=== PATIENT | female | born 1965 | race Caucasian/White ===

== ENCOUNTER 2023-06-22 19:13 | Emergency (ER) | payer BC, SELFPAY ==
[2023-06-22 19:17] VITALS: BP 176/73
--- NOTE | 2023-06-22 21:17 | ED.GENMED ---
History of Present Illness
General
Chief Complaint: Musculo-Skeletal Complaint
Time Seen by Provider: 06/22/23 20:33
Travel History
Have you had any contact with someone who has COVID-19?: No
Do you have any symptoms of coronavirus? Fever > 100 degrees, chills, cough, shortness of breath, sore throat, loss of taste or smell, muscle aches, or headache?: No
History of Present Illness
History of Present Illness:
57-year-old female presents the emergency department for evaluation of bilateral knee pain after a fall 2 days ago. Fell onto flexed knees. She has been able to walk but is noticed increased swelling and bruising particular to the right knee.
Denies any hip pain or back pain. Does not take anticoagulants
Past History
Past History
ED Past Medical History: HTN, NIDDM and Other (obesity)
ED Past Surgical History: Orthopedic
Patient has exhibited threatening behavior?: No
Social History
Tobacco: Non-smoker
Alcohol: Occasional
Drug: None
Personal:
Living: with family
Employment: Employed
Family History
Family History: Diabetes
Review of Systems
Review of Systems
Allergies reviewed?: Yes
All Other Systems: ROS reviewed and negative except as documented in HPI and ROS
Phy Exam
Physical Exam
Physical Exam:
GEN: Well appearing, NAD, WDWN
HEENT: Oral mucosa moist, no scleral icterus
Cardiac: Regular rate
Lung: No respiratory distress, no tachypnea
MSK: Diffuse ecchymosis to the right knee. Normal range of motion. Valgus deformity likely chronic. No ecchymosis to the left knee, valgus deformity likely chronic. Normal range of motion.
Skin: Good color, no pallor or jaundice, no rashes
Neuro: AO x3, moves all extremities freely
Psych: Calm, cooperative
Course
Orders/Labs/Results
Orders:
Orders
06/22/23 20:36
CR Knee - Left 4 Or More View* Urgent
Comment:
Reason For Exam: fall injury
CR Knee- Right 4 Or More View* Urgent
Comment:
Reason For Exam: fall injury
Vital Signs
Initial and Last Documented VS:
Initial Vital Signs
Temp Pulse Resp BP Pulse Ox
97.5 F 64 18 176/73 100
06/22/23 19:17 06/22/23 19:17 06/22/23 19:17 06/22/23 19:17 06/22/23 19:17
Last Documented Vital Signs
Temp Pulse Resp BP Pulse Ox
97.5 F 64 18 176/73 100
06/22/23 19:17 06/22/23 19:17 06/22/23 19:17 06/22/23 19:17 06/22/23 19:17
MDM/Problems Addressed
MDM/Problems Addressed:
X-rays of bilateral knees independently interpreted by me are negative for acute osseous abnormalities. Discussed supportive care
*Critical Care Note
Total Time (30-74mins, 75-104mins- exclusive of procedures): Not Applicable
ED Attending Note
-
Portions of this chart may have been created with voice recognition software.� Occasional wrong word or��sound alike� substitutions may have occurred due to the inherent limitations of voice recognition software.
Discharge Plan
Departure
Patient Disposition: Home (Routine Discharge)
Date of Disposition: 06/22/23
Time of Disposition: 22:21
Patient with high blood pressure during this ER visit?: No
Discharge Problem:
Contusion of knee, left, Contusion of knee, right
Instructions: Contusion (DC)
Prescriptions:
No Action
metformin 500 MG tablet
1,000 mg PO BID
Felodipine
10 mg PO DAILY
Lisinopril
10 mg PO DAILY
glimepiride 1 MG tablet
5 mg PO DAILY
Trulicity
1 unit INJ WEEKLY
azithromycin 250 MG tablet
250 mg PO DAILY Qty: 4 0RF
clindamycin HCl 300 mg capsule
300 mg PO TID 5 Days Qty: 14 0RF
ondansetron 4 mg tablet,disintegrating
4 mg PO TIDPRN PRN (Reason: nausea/vomiting) Qty: 10 0RF
Referrals:
Eivn South DO [Family Provider] -
Interventions
Interventions:
*Risk Screen - Suicide Last Done: 06/22/23 19:20
*General Assessment Last Done: 06/22/23 19:20
*Neglect/Abuse Screening Last Done: 06/22/23 19:20
ED- Fall Risk Assessment Last Done: 06/22/23 19:37
*ED COVID-19 Vaccine History Last Done: 06/22/23 19:45
*Nursing Disposition Last Done: 06/22/23 22:24
ED-Musculoskeletal Assessment Last Done: 06/22/23 19:42
ED- Neurological Assessment Last Done: 06/22/23 19:42
ED-Skin Assessment Last Done: 06/22/23 19:42
Discharge Date and Time
Discharge Date/Time: 06/22/23 22:25
== END 2023-06-22 22:25 | disposition home or self-care (01) ==
LOC: EMR 19:13
PROVIDERS: EMERGENCY PHYSICIAN Emergency Medicine; FAMILY PHYSICIAN Family Medicine
DX: S80.02XA Contusion of left knee, initial encounter (principal); S80.01XA Contusion of right knee, initial encounter; W19.XXXA Unspecified fall, initial encounter; I10 Essential (primary) hypertension; E11.9 Type 2 diabetes mellitus without complications; E66.9 Obesity, unspecified; Z83.3 Family history of diabetes mellitus
CPT/HCPCS: 99283; 73564

== ENCOUNTER → 2023-12-25 07:51 | Outpatient (REF) | payer BC, SELFPAY | LOC: DHVS 07:51 | PROVIDERS: ATTENDING PHYSICIAN Surgery Vascular Surgery; FAMILY PHYSICIAN Family Medicine | DX: I73.9 Peripheral vascular disease, unspecified (principal) | CPT/HCPCS: 93922 ==